=== PATIENT | female | born 1970 | race Caucasian/White ===

== ENCOUNTER 2017-10-01 15:15 | Outpatient (CLI) | payer OTHER ==
--- NOTE | 2017-10-01 16:24 | MRI ---
MRI OF THE LUMBAR SPINE WITHOUT CONTRAST: INDICATION: A 46-year-old female with low back pain since March of 2017 after fall. The patient has a history o f neuropathy in the feet and has had multiple falls related to this. COMPARISON: CT of the abdomen and pelvis dated 03/02/05. There are 5 lumbar-type vertebrae. Conus is seen to ter minate at approximately L1. There is loss of the normal disk height and signal at L4-5. Visualized retroperitoneum and paravertebral soft tissues appear within normal limits. At the L5-S1 level, there is moderate bilateral facet joint degenerative change without appreciable c entral canal or neural foraminal narrowing. At the L4-5 level, there is a broad-based disk bulge with facet joint degenerative change with ligame ntum flavum hypertrophy inducing mild central canal narrowing with mild bilateral neural foraminal na rrowing. At L3-4, there is a broad-based bulge with mild facet joint degenerative change. At L2-3, there is a broad-based bulge without appreciable central canal or neural foraminal narrowing . At L1-L2, there is no appreciable central canal or neural foraminal narrowing. At T12-L1, there is no appreciable central canal or neural foraminal narrowing. IMPRESSION: Mild multilevel spondylosis of the lumbar spine most pronounced at L4-5where there is mild bilateral neural foraminal narrowing. POS: [facility]
--- NOTE | 2017-10-01 17:01 | RAD ---
LUMBAR SPINE LATERAL AND FLEXION AND EXTENSION VIEWS: Date: 10/01/17 HISTORY: Low back pain. FINDINGS/IMPRESSION: Degenerative changes are present. No compression fracture or subluxation is identified. No change in alignment is noted on flexion or extension. POS: [facility]
== END 2017-10-01 15:16 | disposition home or self-care (01) ==
LOC: MRI 15:15
PROVIDERS: ATTEND Neurological Surgery
DX: M54.5 Low back pain (principal); M47.896 Other spondylosis, lumbar region; M99.83 Other biomechanical lesions of lumbar region
CPT/HCPCS: 72100; 72148

== ENCOUNTER 2018-06-24 16:00 | Outpatient (CLI) | payer OTHER | END 2018-06-24 16:01 | disposition home or self-care (01) | LOC: SLEEPLAB 16:00 | PROVIDERS: ATTEND Internal Medicine | DX: G47.33 Obstructive sleep apnea (adult) (pediatric) (principal); R53.83 Other fatigue; R06.83 Snoring; I10 Essential (primary) hypertension; G47.00 Insomnia, unspecified; E11.9 Type 2 diabetes mellitus without complications; Z68.38 Body mass index [BMI] 38.0-38.9, adult | CPT/HCPCS: 95806 ==

== ENCOUNTER 2018-07-02 06:57 | Day surgery (SDC) | payer OTHER ==
[2018-07-02 08:36] LABS: #Eosinphils 0.2 thou/uL (0.0-0.7); #Lymphocytes 2.2 thou/uL (1.20-3.40); #Monocytes 0.5 thou/uL (0.11-0.59); %Basophils 0.5 % (0.0-1.0); %Eosinophils 2.4 % (0.0-10.0); %Lymphocytes 27.9 % (21.0-51.0); %Monocytes 6.3 % (0.0-10.0); %Neutrophils 62.9 % (42.0-75.0); Hemoglobin 14.6 g/dL (12.0-16.0); Mean Corpuscular HGB CONC 33.3 g/dL (32.0-36.0); Mean Corpuscular Hemoglobin 29.8 pg (27.0-31.0); Mean Corpuscular Volume 89.6 fL (78.0-98.0); Mean Platelet Volume 6.6 fL (7.4-10.4); Platelet Count 286 thou/uL (130-400); RBC Distribution Width 11.9 % (11.5-14.5)
[2018-07-02 08:52] LABS: Anion Gap 13 mmol/L (10-20); BUN (Urea Nitrogen) 9 mg/dL (7.0-18.7); Calc. Creatinine Clearance 0 mL/min (70-130); Carbon Dioxide 26 mmol/L (22-29); Chloride 104 mmol/L (98-107); Estimated GFR-MDRD 84; Glucose 143 mg/dL (70-105); Potassium 3.3 mmol/L (3.5-5.1); Sodium 140 mmol/L (136-145)
[2018-07-02 09:29] LABS: Bilirubin Negative (Negative); Blood, Urine Negative (Negative); Clarity CLEAR (Clear); Glucose, Urine (Dipstick) Negative (Negative); Leukocyte Negative (Negative); Nitrite Negative (Negative); Protein, Urine (Dipstick) Negative (Neg-Trace); Specific Gravity, Urine 1.015 (1.002-1.036); pH, Urine 6.5 (5.0-9.0)
--- NOTE | 2018-07-02 09:36 | RAD ---
CHEST 1 VIEW: HISTORY: Preop. COMPARISON: 11/02/2017. FINDINGS: Cardiac silhouette is magnified by projection. Pulmonary vasculature is upper limits of normal. Med iastinum is midline. No lobar consolidation or evidence of pneumothorax. IMPRESSION: No active cardiopulmonary abnormalities demonstrated. POS: [facility]
[2018-07-02] MEDS ORDERED: Bupivacaine PF 0.5% 30 ML VIAL ONE (10:09)
[2018-07-02] MEDS ORDERED: Betamet Acet/Betamet Na Ph 30 MG/5 ML VIAL ONE (10:09)
[2018-07-02] MEDS ORDERED: Bacitracin Zinc Ointment 30 gm TUBE ONE (10:09)
[2018-07-02] MEDS ORDERED: HYDROmorphone 2 MG/ML VIAL ONE (10:13)
[2018-07-02] MEDS ORDERED: Fentanyl 250 MCG/5 ML VIAL ONE (10:13)
[2018-07-02] MEDS ORDERED: Ketorolac Tromethamine 30 MG/ML VIAL ONE (12:22)
[2018-07-02] MEDS ORDERED: Fentanyl 100 MCG/2 ML VIAL ONE (12:33)
[2018-07-02] MEDS ORDERED: Lidocaine 1% PF 5 ML VIAL ONE (13:13)
[2018-07-02] MEDS ORDERED: PROPOFOL 200 MG/20 ML VIAL ONE (13:13)
[2018-07-02] MEDS ORDERED: Ondansetron PF 4 MG/2 ML Vial ONE (13:13)
[2018-07-02] MEDS ORDERED: HYDROcodone/Acetaminophen 5/325 mg Tablet ONE (13:21)
--- NOTE | 2018-07-04 22:23 | EKG ---
Test Reason : PREOP Blood Pressure : / mmHG Vent. Rate : 089 BPM Atrial Rate : 089 BPM P-R Int : 146 ms QRS Dur : 078 ms QT Int : 382 ms P-R-T Axes : 035 005 032 degrees QTc Int : 464 ms Normal sinus rhythm Normal ECG When compared with ECG of 29-SEP-2016 13:39, No significant change was found Confirmed by NICOLE MAHER (2) on 07/04/2018 10:23:25 PM Referred By: HALEY Confirmed By:NICOLE MAHER
--- NOTE | 2018-07-06 09:24 | OP ---
DATE OF PROCEDURE: 07/02/2018 PREOPERATIVE DIAGNOSES: 1. Left carpal tunnel syndrome. 2. Left de Quervain's tenosynovitis. 3. Left abductor pollicis longus with very significant extensor tenosynovitis on the right side. POSTOPERATIVE DIAGNOSES: 1. Left carpal tunnel syndrome. 2. Left de Quervain's tenosynovitis. 3. Left abductor pollicis longus with very significant extensor tenosynovitis on the right side. PROCEDURE: 1. On the right, right carpal tunnel release. 2. Left-side procedures: A. Carpal tunnel release, left. B. De Quervain's extensor tendovaginitis release. C. Left abductor pollicis longus and extensor tenosynovectomy without translocation. SPECIMEN REMOVED: Left abductor pollicis longus, extensor tenosynovium. TOURNIQUET TIME: Left 21 minutes. ESTIMATED BLOOD LOSS: On the left about 5 mL. TOURNIQUET TIME: Right, 5 minutes. ESTIMATED BLOOD LOSS: Right, less than 3 mL. FINDINGS: Tight transverse carpal ligament bilaterally and 3 first dorsal compartment tendons with 2 branches APRIL seen indicative of synovitis. DESCRIPTION OF PROCEDURE: After successful general LMA technique by [employer], the limb wa s prepped and draped. The patient had both sides prepped and draped. She had both carpal tunnel inc ision undergo injection of the de Quervain's region of the left side. We first approached the right side where the tourniquet was inflated after exsanguination, brought up to 250 mmHg pressure. We the n made a 2.5 cm long incision in line with the ring finger medial, lateral, and as far distal as Kapl an's cardinal lines for approximately 5 mm distal to the volar flexion crease. We carried the skin i ncision through skin, subcutaneous tissue until we reached the transcarpal ligament. From the midlin e just ulnar to the palmaris longus we then entered from the mid portion of the transcarpal ligament to as far distal as where there was none. Blunt dissection revealed that we had freed the nerve. Th ere was no evidence of digital nerve abnormality. We then turned our attention from the mid portion proximally where we then kept the same retraction, placed the [place] blade in the mid portion and the n slowly released transcarpal ligament just slightly ulnar to the palmaris until we had reached the p almar wrist flexion crease. From here, we elevated, we retract and released it with a tenotomy sciss ors. No nerve or tendon damage occurred. The tourniquet was deflated, hemostasis was obtained on t he right side and then we closed the incision after placing 2 mL of Celestone in drip technique over the nerve with interrupted 4-0 nylon in mattress pattern. The patient then had the right side completed. On the left side, had already undergone prep and drap e and then underwent timeout with identification and we realized we would perform a left-sided carpal tunnel release as well as at least a de Quervain's tenosynovectomy. At this point, timeout was comp leted. Limb was exsanguinated, tourniquet inflated to 250 mmHg pressure. We then using the same inc ision performed the exact mirror identical image procedure as we had done on the right side for the l eft carpal tunnel release with the same findings. We closed the wound in same fashion. We then perf ormed a zigzag incision centered over the radial styloid, carried through the skin and subcutaneous t issue. There was such thickening over the radial styloid that immediately we could see that there wa s nodular degeneration. We then released the retinaculum completely, removed the 3-4 mm areas so it would not recur leaving a large volar flap to prevent subluxation. We then saw there were 2 branches of the abductor pollicis longus, one in the extensor and the adductor had markedly positive tenosyno vial swelling and edema, so the tenosynovitis was corrected by a radical extensor tenosynovectomy wit hout transposition. This was of the left abductor pollicis longus. We then sent a specimen to the l ab. We released the tourniquet, obtained hemostasis, closed the wounds after placing Celestone under drip technique on the tendon. Tourniquet time on this left side was 21 minutes, on the right, it was 5 with left-sided blood loss 5 mL as well as the right. The patient had the wound closed as per the ____ site using 4-0 nylon inte rrupted mattress pattern and a bulky dressing was applied and the patient left the operating room wit hout evidence of anesthetic or operative complication.
== END 2018-07-02 13:57 | disposition home or self-care (01) ==
LOC: SDC 06:57
PROVIDERS: ATTEND Orthopaedic Surgery Hand Surgery
PROC: 01N50ZZ Release Median Nerve, Open Approach (ICD-10-PCS; principal; 2018-07-02)
PROC: 0LB60ZZ Excision of Left Lower Arm and Wrist Tendon, Open Approach (ICD-10-PCS; principal; 2018-07-02)
DX: M65.4 Radial styloid tenosynovitis [de Quervain] (principal); G56.03 Carpal tunnel syndrome, bilateral upper limbs; E11.40 Type 2 diabetes mellitus with diabetic neuropathy, unspecified; F17.200 Nicotine dependence, unspecified, uncomplicated; M18.0 Bilateral primary osteoarthritis of first carpometacarpal joints; G56.23 Lesion of ulnar nerve, bilateral upper limbs; G56.11 Other lesions of median nerve, right upper limb; Z79.4 Long term (current) use of insulin; Z79.899 Other long term (current) drug therapy; Z88.2 Allergy status to sulfonamides; Z88.5 Allergy status to narcotic agent; Z88.6 Allergy status to analgesic agent; Z88.8 Allergy status to other drugs, medicaments and biological substances; Z96.41 Presence of insulin pump (external) (internal)
CPT/HCPCS: 71045; 80048; 81003; 85025; 88304; 93005; 93010; 96374; 96375; J0702; J1170; J1885; J2001; J2405; J2704; J3010; S0020

== ENCOUNTER 2018-07-13 07:27 | Outpatient (CLI) | payer OTHER ==
[2018-06-30 10:56] VITALS: BMI 37.4
--- NOTE | 2018-07-13 09:33 | MRI ---
MRI LUMBAR SPINE WITHOUT CONTRAST: Multiplanar, multisequential imaging of the lumbar spine obtained. INDICATION: Low back pain. Bilateral lower back pain with radiation to legs. FINDINGS: The lumbar vertebrae maintain normal height and alignment. The disk spaces are preserved. Degenerat thuy signal changes are seen at the L4-4 disk space. At L1-2, no disk bulge or protrusion. No abnormality. At L2-3, no significant disk bulge. Mild facet arthrosis. No central canal or foraminal stenosis. At L3-4, no significant disk bulge or protrusion. Mild facet arthrosis and hypertrophy. No signifi cant central canal or foraminal stenosis. At L4-5, there is an annular fissure with broad-based bulge. There is a focal protrusion centrally a ssociated with this annular fissure which compresses the thecal sac. There is associated facet arthr osis and hypertrophy. Findings result in moderate central canal stenosis. At L5-S1, no significant disk bulge. Mild facet arthrosis. No central canal or foraminal stenosis. IMPRESSION: Disk protrusion and central canal stenosis at L4-5 as described. POS: [facility]
--- NOTE | 2018-07-13 10:00 | RAD ---
LUMBAR SPINE: HISTORY: Intervertebral disk disorder with radiculopathy. TECHNIQUE: AP and lateral, as well as flexion and extension, weight-bearing views of the lumbar spine. FINDINGS: Four views of the lumbar spine demonstrate some atherosclerotic calcification of the abdominal aorta. Small anterior osteophyte is seen in the L1, L2, L3, L4, and L5 levels. No evidence of significant disk space height loss is seen. No evidence of anterolisthesis or retrolisthesis is seen on flexion or extension views. Some subtle posterior osteophytes are seen at the L4-L5 level. IMPRESSION: Mild changes of spondylosis with no evidence of anterolisthesis or retrolisthesis seen on flexion or extension views. POS: [facility]
== END 2018-07-13 07:28 | disposition home or self-care (01) ==
LOC: BICMRI 07:27
PROVIDERS: ATTEND Neurological Surgery
DX: M51.16 Intervertebral disc disorders with radiculopathy, lumbar region (principal); M48.062 Spinal stenosis, lumbar region with neurogenic claudication; M47.26 Other spondylosis with radiculopathy, lumbar region; M41.9 Scoliosis, unspecified
CPT/HCPCS: 72110; 72148

== ENCOUNTER 2018-07-15 20:30 | Outpatient (CLI) | payer OTHER | END 2018-07-15 20:31 | disposition home or self-care (01) | LOC: SLEEPLAB 20:30 | PROVIDERS: ATTEND Internal Medicine | DX: G47.33 Obstructive sleep apnea (adult) (pediatric) (principal); R53.83 Other fatigue; E11.9 Type 2 diabetes mellitus without complications; R06.83 Snoring; G47.10 Hypersomnia, unspecified; E66.9 Obesity, unspecified; Z68.38 Body mass index [BMI] 38.0-38.9, adult | CPT/HCPCS: 95811 ==

== ENCOUNTER 2018-10-27 15:13 | Outpatient (CLI) | payer OTHER ==
[~2018-10-27 15:13] MED LIST: Lidocaine 2% PF 100 mg/5 ml Syringe ONE
--- NOTE | 2018-10-27 15:36 | HP ---
HISTORY OF PRESENT ILLNESS: Ms. Larisa Lorenz is a 47-year-old, who presents to the Wound Center for evaluation of a wound of the back in the midline subsequent to laminectomy on 07/28/2018. The patient states that she was seen by Neurosurgery on 08/25/2018 and at this time placed on Keflex for the wound of her back. The patient states that she has been cleansing the wound with soap and water. She states that she then applies either gauze or an ABD over the wound. The patient states that she has been utilizing tape to secure the dressing. The patient was referred to the Wound Center by Neurosurgery on 10/06/2018. PAST MEDICAL HISTORY: 1. Hypertension. 2. Diabetes mellitus. 3. Hypothyroidism. 4. History of seizure disorder. PAST SURGICAL HISTORY: 1. x2. 2. CECILIA/right salpingo-oophorectomy. 3. Laparoscopy and left salpingo-oophorectomy. 4. Laparoscopic appendectomy/cholecystectomy. 5. Left cubital tunnel release. 6. Surgery for right and left carpal tunnel syndrome and left de Quervain tenosynovitis and left abductor pollicis longus tenosynovitis. 7. Laminectomy. MEDICATIONS: 1. Levothyroxine. 2. Crestor. 3. Xanax. 4. Trulicity. 5. Hydrochlorothiazide. 6. Tizanidine. 7. Gabapentin. 8. Vitamin D3. 9. Insulin pump with NovoLog. ALLERGIES: SULFA, FARXIGA, TRIPTAN, VELOSEF, METFORMIN, ZOLOFT, KEPPRA. SOCIAL HISTORY: Social history is negative for current tobacco use. The patient states that she smoked one pack of cigarettes per day for over 10 years. The patient states that she stopped smoking 2 years ago. The patient denies any history of EtOH use. FAMILY HISTORY: Family history is significant for coronary artery disease. The patient states that her mother, father, uncle, and brother were all diagnosed with coronary artery disease. The patient states that she has multiple relatives on both sides of her family, who were diagnosed with diabetes mellitus. PHYSICAL EXAMINATION: VITAL SIGNS: Temperature 98.0, pulse 99, respirations 18, blood pressure 135/66. Accu-Chek 128. GENERAL: A 47-year-old female, sitting on chair in examination room, in no acute distress. HEENT: Normocephalic and atraumatic. NECK: No nuchal rigidity. CHEST: Clear to auscultation. CV: Regular rate and rhythm. ABDOMEN: Soft. BACK: Wound of the back in the midline is present, which measures approximately 0.3 x 0.2 cm. No purulent drainage is associated with the wound. No erythema of the skin surrounding the wound is present. No maceration of the skin of the periwound is noted. The wound is exquisitely tender to palpation. EXTREMITIES: No clubbing or cyanosis. NEUROLOGIC: Grossly nonfocal. ASSESSMENT AND PLAN: 1. Wound of back subsequent to laminectomy on 07/28/2018 as described above. The dimensions of the wound are approximately 0.3 x 0.2 cm and the patient has been reassured that the wound appears to be healing without complications or any signs of infection. Dressing changes of Xeroform followed by an ABD secured with tape will be initiated today. These dressing changes are to be performed on a daily basis after cleansing and irrigation. The patient states she will continue to perform her own dressing changes. No antibiotics will be prescribed today based upon the appearance of the wound. I will see Ms. Lorenz again in 2 weeks. The patient understands and is in agreement with the preceding treatment plan. 2. Hypertension. 3. Diabetes mellitus. The patient's Accu-Chek in clinic today is 128. The patient has been told that for optimal wound healing, her blood glucoses should remain below 150. 4. Hypothyroidism. 5. History of seizure disorder. Job ID: [id number]
== END 2018-10-27 15:14 | disposition home or self-care (01) ==
LOC: WCC 15:13
PROVIDERS: ATTEND Family Medicine
DX: T81.89XD Other complications of procedures, not elsewhere classified, subsequent encounter (principal); M48.061 Spinal stenosis, lumbar region without neurogenic claudication; M54.5 Low back pain; E11.9 Type 2 diabetes mellitus without complications; I10 Essential (primary) hypertension; E03.9 Hypothyroidism, unspecified; Z86.69 Personal history of other diseases of the nervous system and sense organs
CPT/HCPCS: 97602; 99203; G0463; J2001

== ENCOUNTER 2018-11-10 13:49 | Outpatient (CLI) | payer OTHER ==
--- NOTE | 2018-11-10 15:55 | MRI ---
MRI CERVICAL SPINE NONCONTRAST: 11/10/18 HISTORY: 47-year-old female with M54.12, cervical radiculitis. Cervicalgia and bilateral cervical radiculopathy. FINDINGS: Vertebral body heights are maintained. No high grade disc space narrowing at any level. The right nilton ed facet joints are either normal or have mild degenerative changes. On the left, there are degenerative facet changes that are moderate to severe at C3-4, moderate at C5 -6, and moderate to severe at C7-T1. C1-2: No central stenosis or neural foraminal stenosis. C2-3: No central stenosis. Mild right neural foraminal stenosis. Moderate left neural foraminal steno sis. C4-5: Mild central stenosis. Mild to moderate bilateral neural foraminal stenosis, right greater than left. C5-6: Mild central stenosis. No significant right neural foraminal stenosis. Mild to moderate left ne ural foraminal stenosis. C6-7: There is a moderate sized central and bilateral paracentral (left larger than right) disc herni ation, new since prior MRI of 10/07/2005, indenting the ventral aspect of the spinal cord and displac ing the spinal cord posteriorly in the spinal canal, causing severe central spinal canal stenosis, an d decreasing the anteroposterior dimension of the spinal cord. Small bilateral uncinate process osteo phytes cause moderate to severe bilateral neural foraminal stenosis, left greater than right. C7-T1: Mild central stenosis. Moderate sized bilateral uncinate process osteophytes. Mild to moderate right neural foraminal stenosis. Moderate left neural foraminal stenosis. IMPRESSION: 1. At C6-7, there is a central and bilateral paracentral disc herniation (left side larger than right), impinging on the spinal cord and causing severe central spinal canal stenosis. 2. High grade neural foraminal stenosis bilaterally at C6-7, and to a lesser degree at other lev els. 3. Multilevel moderate facet osteoarthrosis isolated to the left side. 4. No high grade degenerative disc disease at any level. POS: [facility]
== END 2018-11-10 13:50 | disposition home or self-care (01) ==
LOC: MRI 13:49
PROVIDERS: ATTEND Neurological Surgery
DX: M50.123 Cervical disc disorder at C6-C7 level with radiculopathy (principal); M48.02 Spinal stenosis, cervical region; M47.22 Other spondylosis with radiculopathy, cervical region
CPT/HCPCS: 72141

== ENCOUNTER 2018-11-10 16:09 | Outpatient (CLI) | payer OTHER ==
--- NOTE | 2018-11-10 16:18 | PRG ---
DATE OF SERVICE: 11/10/2018 HISTORY: Ms. Larisa Lorenz is a 47-year-old who presents to the Wound Center for evaluation of a wound of the back in the midline subsequent to laminectomy on 07/28/2018. The patient stated that she was seen by Neurosurgery on 08/25/2018 and at this time placed on Keflex for the wound of her back. The patient stated that she had been cleansing the wound with soap and water at the time of her initial presentation to the Wound Center. She stated that she then applied either gauze or an ABD over the wound. The patient stated that she had been utilizing tape to secure the dressing. The patient was referred to the Wound Center by Neurosurgery on 10/06/2018. After being seen in the Wound Center, the patient was placed on dressing changes of Xeroform gauze. PHYSICAL EXAMINATION: VITAL SIGNS: Temperature 98.0, pulse 97, respirations 18, blood pressure 133/95. Accu-Chek 193. BACK: The wound of the back in the midline has healed completely. The healed wound is no longer tender to palpation. ASSESSMENT AND PLAN: 1. Wound of back subsequent to laminectomy on 07/28/2018. As stated above, the wound has healed completely. Dressing changes will be discontinued. Ms. Lorenz will be discharged from clinic today with followup on a p.r.n. basis. 2. Hypertension. 3. Diabetes mellitus. The patient's Accu-Chek in clinic today is 193. 4. Hypothyroidism. 5. History of seizure disorder. Job ID: [id number]
== END 2018-11-10 16:10 | disposition home or self-care (01) ==
LOC: WCC 16:09
PROVIDERS: ATTEND Family Medicine
DX: T81.89XD Other complications of procedures, not elsewhere classified, subsequent encounter (principal); I10 Essential (primary) hypertension; E03.9 Hypothyroidism, unspecified; E11.9 Type 2 diabetes mellitus without complications

== ENCOUNTER 2018-11-23 20:05 | Emergency (ER) | payer OTHER | END 2018-11-23 22:42 | disposition home or self-care (01) | LOC: ERS 20:05 | DX: S16.1XXA Strain of muscle, fascia and tendon at neck level, initial encounter (principal); M54.12 Radiculopathy, cervical region; E03.9 Hypothyroidism, unspecified; E78.5 Hyperlipidemia, unspecified; I10 Essential (primary) hypertension; G43.909 Migraine, unspecified, not intractable, without status migrainosus; E11.40 Type 2 diabetes mellitus with diabetic neuropathy, unspecified; F32.9 Major depressive disorder, single episode, unspecified; F41.0 Panic disorder [episodic paroxysmal anxiety]; F17.210 Nicotine dependence, cigarettes, uncomplicated; Z79.4 Long term (current) use of insulin; Z79.899 Other long term (current) drug therapy; X58.XXXA Exposure to other specified factors, initial encounter | CPT/HCPCS: 99283 ==

== ENCOUNTER 2018-12-24 05:40 | Observation (INO) | payer OTHER ==
--- NOTE | 2018-12-22 22:45 | HP ---
HISTORY OF PRESENT ILLNESS: Ms. Lorenz is a 48-year-old female who is well known to our Neurosurgery office. She continues to have significant neck and left arm pain. She even notices a bit of imbalance in the last 6 months. The pain has been there for quite some time; however, her insurance company has denied imaging repeatedly, in fact she has lost strength during this ordeal. Now with new MRI results, she is here to discuss treatment options and she is not having right arm pain nor she having incontinence. REVIEW OF SYSTEMS: A 10-point review of systems has been completed and is negative other than stated in the above HPI. PAST MEDICAL HISTORY: Epilepsy from 8 months to 10 years old, diabetes, thyroid and cholesterol, feet issues, ingrown toenails, and neuropathy. ALLERGIES: SULFA, FARXIGA, TRIPTAN, VELOSEF, METFORMIN, ZOLOFT, WELLBUTRIN, KEPPRA, ZONEGRAN, MOBIC, TRAMADOL. PAST SURGICAL HISTORY: D and C, hysterectomy, ulnar nerve relocation, C-sections, lumbar surgery. FAMILY HISTORY: Noncontributory. SOCIAL HISTORY: Smoking, yes. Denies alcohol or drug use. She is sexually active. PHYSICAL EXAMINATION: CONSTITUTIONAL: Well appearing, well nourished. RESPIRATIONS: Normal work of breathing on room air. CARDIO: Regular rate and rhythm. NEUROLOGIC: Gait and station are normal. Motor exam, moderate 4/5 weakness in the left triceps and the left finger extensors. Sensory exam decreased sensation in left middle finger compared to right. Reflex exam, loss of left triceps jerk. No clonus. IMAGING DATA: MRI, very large herniated nucleus pulposus with C6-C7 and cord compression. There is also severe C7 root stretch on the left. ASSESSMENT AND PLAN: Cervical disk disorder with radiculopathy and myelopathy, C6-C7. Dr. Pearson has offered surgery, ACDF C6-C7 and she states that she understands her risks and is willing to proceed. Job ID: [id number]
[2018-12-23 14:23] VITALS: BMI 40.3
[2018-12-24] MEDS ORDERED: Clindamycin/D5W 900 mg/50 ml Premix Bag ONE ×2 (06:09→17:13)
[2018-12-24] MEDS ORDERED: Levofloxacin 500 mg/D5W 100 ml Premix Bag ONE (06:10)
[2018-12-24] MEDS ORDERED: Sodium Chloride 0.9% 10 ML ONE (06:17)
[2018-12-24] MEDS ORDERED: Thrombin 5000 UNITS/5 ML VIAL ONE (06:17)
[2018-12-24 06:36] LABS: #Basophils 0.1 thou/uL (0.0-0.2); #Eosinphils 0.2 thou/uL (0.0-0.7); #Lymphocytes 3.2 thou/uL (1.20-3.40); #Monocytes 0.9 thou/uL (0.11-0.59); #Neutrophils 5.2 thou/uL (1.40-6.50); %Basophils 0.7 % (0.0-1.0); %Eosinophils 2.2 % (0.0-10.0); %Lymphocytes 33.7 % (21.0-51.0); %Monocytes 9.4 % (0.0-10.0); %Neutrophils 53.9 % (42.0-75.0); Hemoglobin 14.8 g/dL (12.0-16.0); Mean Corpuscular HGB CONC 33.8 g/dL (32.0-36.0); Mean Corpuscular Hemoglobin 31.1 pg (27.0-31.0); Mean Corpuscular Volume 92.1 fL (78.0-98.0); Mean Platelet Volume 6.4 fL (7.4-10.4); Platelet Count 297 thou/uL (130-400); RBC Distribution Width 12.8 % (11.5-14.5); Red Blood Cell (RBC) Count 4.76 mill/uL (4.20-5.40); White Blood Cell (WBC) Count 9.6 thou/uL (4.8-10.8)
[2018-12-24] MEDS ORDERED: Midazolam HCl 2 mg/2 ml Vial ONE (06:39)
[2018-12-24] MEDS ORDERED: Fentanyl 250 MCG/5 ML VIAL ONE (06:42)
[2018-12-24 06:43] LABS: PTT 28.7 SEC (22.9-36.1); Prothrombin Time 12.8 SEC (12.0-14.7)
[2018-12-24] MEDS ORDERED: Phenylephrine HCL 10 MG/ML VIAL ONE (06:43)
[2018-12-24 06:58] LABS: Anion Gap 14 mmol/L (10-20); BUN (Urea Nitrogen) 8 mg/dL (7.0-18.7); Calc. Creatinine Clearance 157 mL/min (70-130); Calcium 9.9 mg/dL (7.8-10.44); Carbon Dioxide 29 mmol/L (22-29); Chloride 101 mmol/L (98-107); Estimated GFR-MDRD 77; Glucose 204 mg/dL (70-105); Potassium 3.9 mmol/L (3.5-5.1); Sodium 140 mmol/L (136-145)
[2018-12-24] MEDS ORDERED: Ondansetron HCl/PF 4 MG/2 ML Vial IVP PRN (09:53)
[2018-12-24] MEDS ORDERED: HYDROmorphone 2 MG/ML VIAL SLOW IVP PRN (09:53)
[2018-12-24] MEDS ORDERED: PACU-Morphine 4MG/ML VIAL SLOW IVP PRN (09:53)
[2018-12-24] MEDS ORDERED: Promethazine HCl 25 MG/ML VIAL IM PRN ×3 (09:53→18:04)
[2018-12-24] MEDS ORDERED: Promethazine HCl 25 MG/ML VIAL SLOW IVP PRN (09:53)
[2018-12-24] MEDS ORDERED: Morphine Sulfate 2 MG/ML SYRINGE SLOW IVP PRN (09:53)
[2018-12-24] MEDS ORDERED: Fentanyl 100 MCG/2 ML VIAL ONE ×3 (10:48→16:34)
[2018-12-24] MEDS ORDERED: Rocuronium Bromide 10 MG/ML (10ML VIAL) ONE (10:49)
[2018-12-24] MEDS ORDERED: Lidocaine 1% PF 5 ML VIAL ONE (10:49)
[2018-12-24] MEDS ORDERED: Dexamethasone 20 MG/5 ML VIAL ONE (10:49)
[2018-12-24] MEDS ORDERED: PHENYLEPHRINE-NS 100 MCG/ML 10 ML SYRINGE ONE (10:49)
[2018-12-24] MEDS ORDERED: PROPOFOL 200 MG/20 ML VIAL ONE (10:49)
[2018-12-24] MEDS ORDERED: Ondansetron PF 4 MG/2 ML Vial ONE (10:49)
[2018-12-24] MEDS ORDERED: Glycopyrrolate 0.2 MG/ML 5 ML SYRINGE ONE (10:49)
--- NOTE | 2018-12-24 10:59 | OP ---
DATE OF PROCEDURE: 12/24/2018 [employer] PROCESSOR: Luda Vergara PA-C PREOPERATIVE INDICATION: Prevent neurological deterioration. PREOPERATIVE DIAGNOSES: C6-C7 intervertebral disk disease with cord compression and radiculopathy. POSTOPERATIVE DIAGNOSES: C6-C7 intervertebral disk disease with cord compression and radiculopathy. PROCEDURES PERFORMED: Anterior cervical diskectomy, intervertebral arthrodesis, placement of intervertebral biomechanical device, anterior cervical plating C6-C7, local morselized autograft, morselized allograft, and operating microscope. PREOPERATIVE MEDICATIONS: Clindamycin 900 mg IV and Levaquin 500 mg IV. DRAIN NUMBER: Zero. DRAIN TYPE: None. DESCRIPTION OF PROCEDURE: The patient was brought to the operating room. General endotracheal anesthesia was induced and the head was positioned in normal anatomic alignment. A lateral fluoro radiograph was used to plan our incision. The right side of the neck was sterilely prepped and draped. We opened with a 10 blade knife and controlled bleeding with bipolar cautery. We dissected sharply to the platysma and cut this muscle in-line with our incision. We continued our dissection medial to the sternocleidomastoid and lateral to the trachea and esophagus. We arrived to the prevertebral space. We placed a marker at C4-C5 and took a lateral fluoro radiograph. From C4-C5, we counted down to C6-C7. We elevated the longus colli muscles and placed a self-retaining retractor beneath them. Distraction pins were placed at C6 and C7 and distracted across the intervening interspace. We incised the interspace with a 15 blade knife and removed disk contents using curettes and rongeurs. As we approached the posterior longitudinal ligament, we brought the operating microscope into the field. Under microscopic magnification and using microsurgical techniques, we removed the remainder of the intervertebral disk. We accessed the ventral epidural space with a microcurette and removed posterior osteophytes and posterior longitudinal ligament across the entire interspace from one nerve root all the way to the other. There was a loose herniated disk fragment in the left neural foramen and left side of the canal that was quite large. This was removed as well. There was no further compression of the completion of our diskectomy. We then turned our attention to arthrodesis. Using curettes, we prepared the endplates for grafting. We measured the height of the interspace to 8 mm with a bone rasp. An 8 mm PEEK intervertebral graft was brought into the field. This was loaded with demineralized bone matrix and morselized autograft. The autograft had been previously prepared on the back table using our osteophyte bone, cleaning the soft tissue attachments, morcellized into the demineralized bone matrix to form a fusion substrate. The 8 mm graft was advanced to the interspace under radiographic guidance to the appropriate depth. Distraction pins were removed. The operating microscope was taken out of the field. A 14 mm plate was brought into the field. We drilled harbor boat pilot holes through the plate into the vertebral segments at C6 and C7. We affixed the plate using 14 mm screws. Fixed angle screws were used at C7 and variable angle screws at C6. We engaged the locking mechanism over each of the 4 screws. We copiously irrigated with bacitracin irrigation. We closed the wound in anatomical layers. We applied a sterile dressing. This was a clean case, no contamination. Job ID: [id number]
[2018-12-24] MEDS ORDERED: Insulin Regular 300 UNITS/3 ML VIAL ONE ×2 (11:39→13:53)
[2018-12-24] MEDS ORDERED: Acetaminophen 650 MG Suppository PR PRN ×2 (16:03→18:04)
[2018-12-24] MEDS ORDERED: diphenhydrAMINE 50 MG/ML VIAL IVP PRN ×2 (16:03→18:04)
[2018-12-24] MEDS ORDERED: tiZANidine HCl 4 MG TAB PO PRN ×2 (16:03→18:04)
[2018-12-24] MEDS ORDERED: diphenhydrAMINE 25 MG CAP PO PRN ×2 (16:03→18:04)
[2018-12-24] MEDS ORDERED: Morphine 2 MG/ML SYRINGE SLOW IVP PRN (16:03)
[2018-12-24] MEDS ORDERED: Acetaminophen 325 MG TAB PO PRN ×2 (16:03→18:04)
[2018-12-24] MEDS ORDERED: Morphine 4 MG/ML VIAL SLOW IVP PRN ×2 (16:03→18:04)
[2018-12-24] MEDS ORDERED: Milk Of Magnesia 30 ML UDCUP PO PRN ×2 (16:03→18:04)
[2018-12-24] MEDS ORDERED: Promethazine 25 MG TAB PO PRN ×2 (16:03→18:04)
[2018-12-24] MEDS ORDERED: Acetaminophen/Codeine 30-300mg Tablet PO PRN ×3 (16:03→18:04)
[2018-12-24] MEDS ORDERED: Bisacodyl 10 MG SUPP PR PRN ×2 (16:03→18:04)
[2018-12-24] MEDS ORDERED: Mag-Al 1200 mg/1200 mg/30 ML UDCUP PO PRN ×2 (16:03→18:04)
[2018-12-24] MEDS ORDERED: ALPRAZolam 0.25 MG TAB PO PRN (16:08)
[2018-12-24] MEDS ORDERED: Sodium Chloride 0.9% 1,000 ML IV SCH ×2 (16:15→18:04)
[2018-12-24] MEDS ORDERED: SUBCUTANEOUS INSULIN PUMP SC SCH (16:45)
[2018-12-24] MEDS: Clindamycin/D5W 900 MG in Premix Bag 1 BAG IVPB SCH (17:59)
[2018-12-24] MEDS ORDERED: Acetaminophen/Codeine 30-300mg Tablet PO SCH (18:00)
[2018-12-24] MEDS ORDERED: Promethazine HCl 12.5 MG SUPP PR PRN (18:04)
[2018-12-24] MEDS ORDERED: Ondansetron PF 4 MG/2 ML Vial IVP PRN (18:04)
[2018-12-24] MEDS ORDERED: Prochlorperazine 10 MG/2 ML VIAL IM PRN (18:04)
[2018-12-24] MEDS ORDERED: Clindamycin/D5W 900 MG in Premix Bag 1 BAG IVPB SCH (18:30)
[2018-12-24] MEDS: Gabapentin 300 MG CAP PO SCH (20:29)
[2018-12-24] MEDS: tiZANidine HCl 4 MG TAB PO SCH (20:29)
[2018-12-24] MEDS ORDERED: Icosapent Ethyl [Vascepa] 2 CAP PO SCH (21:00)
[2018-12-24] MEDS ORDERED: Melatonin 3 MG TAB PO SCH (21:00)
[2018-12-24] MEDS: Acetaminophen/Codeine 30-300mg Tablet PO PRN (22:40)
[2018-12-24] MEDS: Diazepam 2 MG TAB PO SCH (22:41)
[2018-12-25] MEDS: Clindamycin/D5W 900 MG in Premix Bag 1 BAG IVPB SCH (00:33)
[2018-12-25] MEDS: Acetaminophen/Codeine 30-300mg Tablet PO PRN ×2 (02:38→09:38)
[2018-12-25] MEDS: Diazepam 2 MG TAB PO SCH (05:20)
[2018-12-25] MEDS ORDERED: Levothyroxine Sodium 25 MCG TAB PO SCH (06:00)
[2018-12-25] MEDS ORDERED: Levothyroxine Sodium 112 MCG TAB PO SCH (06:00)
[2018-12-25 08:13] VITALS: BP 124/75; TEMP 98.2
[2018-12-25] MEDS ORDERED: Loratadine 10 MG TAB PO SCH (09:00)
[2018-12-25] MEDS ORDERED: Hydrochlorothiazide 25 MG TAB PO SCH (09:00)
[2018-12-25] MEDS ORDERED: Non-Formulary Item 1 EACH (Levothyroxine Sodium [Levothyroxine Sodium] 1 TAB) PO SCH (09:00)
[2018-12-25] MEDS ORDERED: Rosuvastatin 20 MG TAB PO SCH (09:00)
[2018-12-25] MEDS ORDERED: Potassium Chloride 20 MEQ TAB PO SCH (09:00)
[2018-12-25] MEDS: tiZANidine HCl 4 MG TAB PO SCH (09:29)
[2018-12-25] MEDS: Gabapentin 300 MG CAP PO SCH (09:29)
[2018-12-31] MEDS ORDERED: Dulaglutide [Trulicity] 1.5 MG SC SCH (09:00)
== END 2018-12-25 11:18 | disposition home or self-care (01) ==
LOC: SDC 05:40 → SURG A 17:53
PROVIDERS: ADMIT Neurological Surgery; ATTEND Neurological Surgery
PROC: 0RG10A0 Fusion of Cervical Vertebral Joint with Interbody Fusion Device, Anterior Approach, Anterior Column, Open Approach (ICD-10-PCS; principal; 2018-12-24)
PROC: 0RT30ZZ Resection of Cervical Vertebral Disc, Open Approach (ICD-10-PCS; 2018-12-24)
DX: M50.123 Cervical disc disorder at C6-C7 level with radiculopathy (principal); M50.023 Cervical disc disorder at C6-C7 level with myelopathy; E11.40 Type 2 diabetes mellitus with diabetic neuropathy, unspecified; E78.00 Pure hypercholesterolemia, unspecified; G40.909 Epilepsy, unspecified, not intractable, without status epilepticus; E07.9 Disorder of thyroid, unspecified; F17.200 Nicotine dependence, unspecified, uncomplicated; Z88.6 Allergy status to analgesic agent; Z88.1 Allergy status to other antibiotic agents; Z88.2 Allergy status to sulfonamides; Z88.8 Allergy status to other drugs, medicaments and biological substances; Z79.4 Long term (current) use of insulin; Z79.899 Other long term (current) drug therapy
CPT/HCPCS: 36415; 36416; 76000; 80048; 85025; 85610; 85730; 96365; C1713; C1776; G0378; J0131; J1100; J1815; J1956; J2001; J2250; J2370; J2405; J2704; J3010; J3490

== ENCOUNTER 2019-03-10 15:08 | Outpatient (CLI) | payer OTHER ==
--- NOTE | 2019-03-10 16:28 | MMO ---
Bilateral MAMMO Bilat Screen [facility]. CLINICAL HISTORY: Patient is 48 years old and is seen for screening. The patient has the following family history of breast cancer: paternal grandmother, at age 60. VIEWS: The views performed were: bilateral craniocaudal with tomosynthesis and bilateral mediolateral oblique with tomosynthesis. MAMMOGRAM FINDINGS: There are scattered fibroglandular densities. There are no suspicious masses, suspicious calcifications, or new areas of architectural distortion. IMPRESSION: THERE IS NO MAMMOGRAPHIC EVIDENCE OF MALIGNANCY. A ROUTINE FOLLOW-UP MAMMOGRAM IN 1 YEAR IS RECOMMENDED. THE RESULTS OF THIS EXAM WERE SENT TO THE PATIENT. ACR BI-RADS Category 1 - Negative MAMMOGRAPHY NOTE: 1. A negative mammogram report should not delay a biopsy if a dominant of clinically suspicious mass is present. 2. Approximately 10% to 15% of breast cancers are not detected by mammography. 3. Adenosis and dense breasts may obscure an underlying neoplasm. Reported by: Keyanna LAM Electonically Signed: [id number]
== END 2019-03-10 15:09 | disposition home or self-care (01) ==
LOC: BICMAMMO 15:08
PROVIDERS: ATTEND Family Medicine
DX: Z12.31 Encounter for screening mammogram for malignant neoplasm of breast (principal); Z80.3 Family history of malignant neoplasm of breast
CPT/HCPCS: 77063; 77067

== ENCOUNTER 2019-05-16 15:06 | Outpatient (CLI) | payer OTHER ==
--- NOTE | 2019-05-16 16:27 | MRI ---
MRI of left shoulder performed without contrast HISTORY: Left shoulder pain and decreased range of motion. COMPARISON: None. FINDINGS: There is mild arthrosis of the AC joint. The supra as well as infraspinatus tendons appear intact. The subscapularis muscle and tendon are normal in appearance. The biceps tendon is normal in position within the bicipital groove. The inferior glenohumeral ligamentous and labral complex appears unremarkable. There is some increase d signal change within the superior labrum directly posterior to the biceps anchor which could represent some mild labral degeneration all I see no definite signs of a tear. If a SLAP type tear as clinically suspected MRI arthrography would be recommended. No significant muscle atrophy of the rotator cuff. IMPRESSION: No evidence of rotator cuff tear or definite signs of labral injury. The superior labrum is mildly heterogeneous, if a SLAP type tear is clinically suspected MRI arthrography would be recommended.
== END 2019-05-16 15:07 | disposition home or self-care (01) ==
LOC: BICMRI 15:06
PROVIDERS: ATTEND Orthopaedic Surgery Hand Surgery
DX: M75.42 Impingement syndrome of left shoulder (principal)

== ENCOUNTER 2019-08-01 10:26 | Outpatient (CLI) | payer OTHER ==
--- NOTE | 2019-08-01 14:05 | MRI ---
MRI LUMBAR SPINE WITH AND WITHOUT CONTRAST: INDICATIONS: Lumbar spondylosis. COMPARISON: MRI lumbar spine from 10/01/2017. FINDINGS: There is a history of lumbar surgery on 07/28/2018. The lumbar vertebrae maintain normal height and alignment. Vertebral body signal is normal. Disk spac es are preserved. No significant disk bulge or disk protrusion at T12-L1 or L1-L2. At L2-L3, minimal disk bulge without change from prior exam. No central canal or foraminal stenosis. At L3-L4, postop laminectomy changes are now present. There is enhancement posteriorly at the operati ve bed. No residual recurrent disk bulge or protrusion. Mild paravertebral enhancement, possibly post operative. At L4-L5, posterior laminectomy change with enhancement in the operative bed and in the spinal canal, consistent with postoperative change. No residual or recurrent disk protrusion. At L5-S1, no significant disk bulge. Facet hypertrophy. No central canal or foraminal stenosis. IMPRESSION: Postoperative changes are now noted at L3-L4 and at L4-L5. There is enhancement posteriorly at the la minectomy site and in the spinal canal, consistent with postoperative change. Mild perivertebral enha ncement is seen involving the superior portion of L4, just beneath the L3-L4 disk space. While this c ould represent perivertebral inflammatory change, there is no evidence of fluid collection or other e vidence of inflammation. No abnormal vertebral body signal is seen and there are no findings that wou ld indicate osteomyelitis or diskitis. POS: [facility]
== END 2019-08-01 10:27 | disposition home or self-care (01) ==
LOC: BICMRI 10:26
PROVIDERS: ATTEND Neurological Surgery
DX: M47.816 Spondylosis without myelopathy or radiculopathy, lumbar region (principal); M79.606 Pain in leg, unspecified; Z98.890 Other specified postprocedural states
CPT/HCPCS: 72158; 82565

== ENCOUNTER 2022-03-17 18:31 | Observation (INO) | payer OTHER ==
[~2022-03-17 18:31] MED LIST changes: +Iopamidol-370 76% 500 ML 1 ML ONE; -Lidocaine 2% PF 100 mg/5 ml Syringe ONE
[2022-03-17 19:26] LABS: #Eosinphils 0.2 thou/uL (0.0-0.7); #Lymphocytes 3.2 thou/uL (1.20-3.40); #Monocytes 0.6 thou/uL (0.11-0.59); #Neutrophils 4.7 thou/uL (1.40-6.50); %Basophils 0.4 % (0.0-1.0); %Eosinophils 2.2 % (0.0-10.0); %Lymphocytes 36.9 % (21.0-51.0); %Monocytes 6.8 % (0.0-10.0); %Neutrophils 53.7 % (42.0-75.0); Hemoglobin 14.2 g/dL (12.0-16.0); Mean Corpuscular HGB CONC 33.7 g/dL (32.0-36.0); Mean Corpuscular Hemoglobin 30.7 pg (27.0-31.0); Mean Corpuscular Volume 91.2 fL (78.0-98.0); Mean Platelet Volume 6.8 fL (7.4-10.4); Platelet Count 290 thou/uL (130-400); RBC Distribution Width 13.2 % (11.5-14.5); Red Blood Cell (RBC) Count 4.64 mill/uL (4.20-5.40); White Blood Cell (WBC) Count 8.8 thou/uL (4.8-10.8)
[2022-03-17 19:38] LABS: PTT 24.7 sec (22.9-36.1); Prothrombin Time 13.3 sec (12.0-14.7)
[2022-03-17 19:51] LABS: ALT (SGPT) 42 U/L (8-55); AST (SGOT) 31 U/L (5-34); Albumin 4.6 g/dL (3.5-5.0); Alkaline Phosphatase 120 U/L (40-110); Anion Gap 15 mmol/L (10-20); BUN (Urea Nitrogen) 12 mg/dL (7.0-18.7); Bilirubin, Total 0.2 mg/dL (0.2-1.2); Calc. Creatinine Clearance 0 mL/min (70-130); Calcium 9.5 mg/dL (7.8-10.44); Carbon Dioxide 26 mmol/L (22-29); Chloride 102 mmol/L (98-107); Estimated GFR 67; Globulin 3.1 g/dL (2.4-3.5); Glucose 135 mg/dL (70-105); Potassium 3.2 mmol/L (3.5-5.1); Protein, Total 7.7 g/dL (6.0-8.3); Sodium 140 mmol/L (136-145)
[2022-03-17] MEDS ORDERED: Morphine 4 MG/ML VIAL ONE ×3 (21:30→23:46)
[2022-03-18] MEDS ORDERED: Ondansetron PF 4 MG/2 ML Vial IVP PRN (01:34)
[2022-03-18] MEDS ORDERED: Acetaminophen 325 MG TAB PO PRN (01:34)
[2022-03-18] MEDS ORDERED: Dextrose 50% Abboject 50 ML SYRINGE SLOW IVP PRN (01:41)
[2022-03-18] MEDS ORDERED: Dextrose 5% in Water 1,000 ML IV PRN (01:41)
[2022-03-18] MEDS ORDERED: Potassium Chloride 20 MEQ TAB PO SCH (01:45)
[2022-03-18] MEDS ORDERED: hydrALAZINE 20 MG/ML VIAL SLOW IVP PRN (01:54)
[2022-03-18 05:31] VITALS: BMI 44.6
[2022-03-18 07:43] LABS: #Eosinphils 0.2 thou/uL (0.0-0.7); #Lymphocytes 2.7 thou/uL (1.20-3.40); #Monocytes 0.5 thou/uL (0.11-0.59); #Neutrophils 4.1 thou/uL (1.40-6.50); %Basophils 0.3 % (0.0-1.0); %Eosinophils 2.4 % (0.0-10.0); %Lymphocytes 35.6 % (21.0-51.0); %Monocytes 6.6 % (0.0-10.0); Hemoglobin 13.7 g/dL (12.0-16.0); Mean Corpuscular HGB CONC 32.3 g/dL (32.0-36.0); Mean Corpuscular Hemoglobin 30.1 pg (27.0-31.0); Mean Corpuscular Volume 92.9 fL (78.0-98.0); Mean Platelet Volume 6.6 fL (7.4-10.4); Platelet Count 267 thou/uL (130-400); RBC Distribution Width 13.1 % (11.5-14.5); Red Blood Cell (RBC) Count 4.56 mill/uL (4.20-5.40); White Blood Cell (WBC) Count 7.4 thou/uL (4.8-10.8)
[2022-03-18 08:05] LABS: ALT (SGPT) 38 U/L (8-55); AST (SGOT) 35 U/L (5-34); Albumin 4.1 g/dL (3.5-5.0); Alkaline Phosphatase 117 U/L (40-110); Anion Gap 16 mmol/L (10-20); BUN (Urea Nitrogen) 11 mg/dL (7.0-18.7); Bilirubin, Total 0.3 mg/dL (0.2-1.2); Calc. Creatinine Clearance 129 mL/min (70-130); Calcium 9.6 mg/dL (7.8-10.44); Carbon Dioxide 23 mmol/L (22-29); Cardiac Risk 3.9 (Less than 4.5); Chloride 103 mmol/L (98-107); Cholesterol 104 mg/dl (< 200 Desired); Estimated GFR 68; Globulin 2.9 g/dL (2.4-3.5); Glucose 222 mg/dL (70-105); HDL Cholesterol 27 mg/dL (>60 Neg Risk); LDL Cholesterol, Calculated 31 mg/dL; Magnesium 1.8 mg/dL (1.6-2.6); Potassium 3.7 mmol/L (3.5-5.1); Sodium 138 mmol/L (136-145); Triglycerides 229 mg/dL (Less than 150)
[2022-03-18] MEDS ORDERED: Enoxaparin Sodium 40 MG/0.4 ML SYRINGE SC SCH (09:00)
[2022-03-18 16:05] VITALS: TEMP 97.8
[2022-03-18 16:47] VITALS: BP 157/90
[2022-03-19] MEDS ORDERED: Amlodipine 5 MG TAB PO SCH (09:00)
== END 2022-03-18 17:45 | disposition home or self-care (01) ==
LOC: ERS 18:31 → NEURO 23:48
PROVIDERS: ADMIT Student in an Organized Health Care Education/Training Program; ATTEND Student in an Organized Health Care Education/Training Program
DX: R53.1 Weakness (principal); E87.6 Hypokalemia; E11.40 Type 2 diabetes mellitus with diabetic neuropathy, unspecified; I10 Essential (primary) hypertension; E78.5 Hyperlipidemia, unspecified; E03.9 Hypothyroidism, unspecified; G89.29 Other chronic pain; M54.9 Dorsalgia, unspecified; M79.7 Fibromyalgia; G47.33 Obstructive sleep apnea (adult) (pediatric); M19.90 Unspecified osteoarthritis, unspecified site; F17.210 Nicotine dependence, cigarettes, uncomplicated; M48.02 Spinal stenosis, cervical region; G54.5 Neuralgic amyotrophy; E66.9 Obesity, unspecified; Z68.41 Body mass index [BMI] 40.0-44.9, adult; Z79.4 Long term (current) use of insulin; Z79.890 Hormone replacement therapy; Z79.899 Other long term (current) drug therapy; Z88.1 Allergy status to other antibiotic agents; Z88.2 Allergy status to sulfonamides; Z88.6 Allergy status to analgesic agent; Z88.8 Allergy status to other drugs, medicaments and biological substances; Z96.41 Presence of insulin pump (external) (internal); Z98.1 Arthrodesis status; Z90.5 Acquired absence of kidney; Z20.822 Contact with and (suspected) exposure to COVID-19
CPT/HCPCS: 36415; 36416; 70450; 70496; 70498; 70551; 71045; 72141; 80053; 80061; 83735; 84484; 85025; 85610; 85730; 93005; 96372; 96374; 96376; G0378; J1650; J2270; Q9967; U0003; U0005

== ENCOUNTER 2024-07-28 12:51 | Outpatient (CLI) | payer OTHER | END 2024-07-28 12:52 | disposition home or self-care (01) | LOC: SCSMRI 12:51 | PROVIDERS: ATTEND Specialist | DX: G45.0 Vertebro-basilar artery syndrome (principal) | CPT/HCPCS: 70544; 70549 ==